=== PATIENT | male | born 1970 | race Caucasian/White ===

== ENCOUNTER 2021-10-20 15:46 | Emergency (ER) | payer BC, SELFPAY ==
[2021-10-20] MEDS ORDERED: LIDOCAINE 1% MPF 2 ML AMPULE ONE (16:40)
[2021-10-20] MEDS ORDERED: LIDOCAINE 1% MPF 5 ML VIAL ONE (16:40)
--- NOTE | 2021-10-20 17:09 | ER ---
Nurse's Notes [facility] Name: Sherwin Cartwright Age: 50 yrs Sex: Male : 1970 Arrival Date: 10/20/2021 Time: 15:49 Bed 9 Private MD: Diagnosis: Laceration without foreign body of left hand Presentation: 10/20 15:56 Chief complaint: Patient states: was drilling and drill lacerated his left hand. iw Coronavirus screen: At this time, the client does not indicate any symptoms associated with coronavirus-19. Ebola Screen: Patient negative for fever greater than or equal to 101.5 degrees Fahrenheit, and additional compatible Ebola Virus Disease symptoms Patient denies exposure to infectious person. Patient denies travel to an Ebola-affected area in the 21 days before illness onset. No symptoms or risks identified at this time. Complicating Factors: There are no complicating factors for this patient. Initial Sepsis Screen: Does the patient meet any 2 criteria? No. Patient's initial sepsis screen is negative. Does the patient have a suspected source of infection? No. Patient's initial sepsis screen is negative. Risk Assessment: Do you want to hurt yourself or someone else? Patient reports no desire to harm self or others. Onset of symptoms was October 20, 2021. 15:56 Method Of Arrival: Ambulatory 15:56 Acuity: GERI 4 iw Historical: - Allergies: 15:58 No Known Allergies; iw - Home Meds: 15:58 None [Active]; iw - PMHx: 15:58 back injury; iw - PSHx: 15:58 None; iw - Immunization history:: Last tetanus immunization: < 5 years ago. - Social history:: Smoking status: Patient denies any tobacco usage or history of. Screenin:18 Abuse screen: Denies threats or abuse. Denies injuries from another. Nutritional aj1 screening: No deficits noted. Tuberculosis screening: No symptoms or risk factors identified. Assessment: 16:18 General: Appears in no apparent distress. comfortable, Behavior is calm, cooperative, aj1 appropriate for age. Pain: Denies pain. Neuro: Level of Consciousness is awake, alert, obeys commands, Oriented to person, place, time, situation. Cardiovascular: Patient's skin is warm and dry. Respiratory: Airway is patent Respiratory effort is even, unlabored, Respiratory pattern is regular, symmetrical. GI: No signs and/or symptoms were reported involving the gastrointestinal system. : No signs and/or symptoms were reported regarding the genitourinary system. EENT: No signs and/or symptoms were reported regarding the EENT system. Derm: Skin is pink, warm \T\ dry. Musculoskeletal: Circulation, motion, and sensation intact. Injury Description: Puncture sustained to left hand. 17:15 Reassessment: Patient appears in no apparent distress at this time. No changes from aj1 previously documented assessment. Patient and/or family updated on plan of care and expected duration. Pain level reassessed. Patient is alert, oriented x 3, equal unlabored respirations, skin warm/dry/pink. Vital Signs: 15:56 BP 124 / 84; Pulse 87; Resp 16; Temp 98.1; Pulse Ox 100% on R/A; Weight 70.31 kg; iw Height 5 ft. 6 in. (167.64 cm); 15:56 Body Mass Index 25.02 (70.31 kg, 167.64 cm) iw ED Course: 15:49 Patient arrived in ED. ds1 15:57 Triage completed. iw 15:58 Arm band placed on. iw 16:08 Claud[facility] Tomlin [facility]C [facility]. kb 16:08 Isra Licea MD is Attending Physician. kb 16:17 Brenda Dee, RN is Primary Nurse. aj1 16:18 Patient has correct armband on for positive identification. Bed in low position. Call aj1 light in reach. 16:18 No provider procedures requiring assistance completed. aj1 17:15 Assist provider with laceration repair on lateral aspect of left hand using sutures. aj1 Set up tray. Performed by Claudine DOWNEY Patient tolerated well. 17:51 Patient did not have IV access during this emergency room visit. aj1 Administered Medications: 17:15 Drug: Lidocaine (1 %) 1 vials {Note: Administered by Meaghan Tomlin NP.} Volume: 5 ml; aj1 Route: Infiltration; Outcome: 17:08 Discharge ordered by . kb 17:51 Discharged to home ambulatory. aj1 17:51 Condition: good 17:51 Discharge instructions given to patient, Instructed on discharge instructions, follow up and referral plans. Demonstrated understanding of instructions, follow-up care. 17:52 Patient left the ED. aj1 Signatures: Claudine Tomlin, EARLEC TEAGAN-Brenda Corea RN RN aj1 Dasha Martinez ds1 Lori Bess RN RN iw
--- NOTE | 2021-10-20 17:09 | EDPHYS ---
Physician Documentation [facility] Name: Sherwin Cartwright Age: 50 yrs Sex: Male : 1970 Arrival Date: 10/20/2021 Time: 15:49 Bed 9 Private MD: ED Physician Isra Licea HPI: 10/20 16:39 This 50 yrs old Male presents to ER via Ambulatory with complaints of Laceration To kb Hand. 16:39 The patient has a laceration related to: working, occurred outdoors, and there are no kb complicating factors. The injury was accidental. The laceration(s) is(are) located on the lateral aspect of left hand. Onset: The symptoms/episode began/occurred just prior to arrival. Associated signs and symptoms: The patient has no apparent associated signs or symptoms. The patient has not experienced similar symptoms in the past. The patient has not recently seen a physician. Historical: - Allergies: 15:58 No Known Allergies; iw - Home Meds: 15:58 None [Active]; iw - PMHx: 15:58 back injury; iw - PSHx: 15:58 None; iw - Immunization history:: Last tetanus immunization: < 5 years ago. - Social history:: Smoking status: Patient denies any tobacco usage or history of. ROS: 16:37 Constitutional: Negative for fever, chills, and weight loss. kb 16:37 Skin: Positive for laceration(s), of the lateral aspect of left hand. 16:37 All other systems are negative. Exam: 16:38 Constitutional: This is a well developed, well nourished patient who is awake, alert, kb and in no acute distress. Head/Face: Normocephalic, atraumatic. ENT: Moist Mucous membranes Respiratory: Respirations even and unlabored. No increased work of breathing, no retractions or nasal flaring. MS/ Extremity: Pulses equal, no cyanosis. Neurovascular intact. Full, normal range of motion. Neuro: Awake and alert, GCS 15, oriented to person, place, time, and situation. Moves all extremities. Normal gait. Psych: Awake, alert, with orientation to person, place and time. Behavior, mood, and affect are within normal limits. 16:38 Skin: injury, laceration(s), the wound is approximately 2 cm(s), of the lateral aspect of left hand, that can be described as clean, no foreign body, linear, without bleeding. Vital Signs: 15:56 BP 124 / 84; Pulse 87; Resp 16; Temp 98.1; Pulse Ox 100% on R/A; Weight 70.31 kg; iw Height 5 ft. 6 in. (167.64 cm); 15:56 Body Mass Index 25.02 (70.31 kg, 167.64 cm) iw Laceration: 17:08 Wound Repair of 2cm ( 0.8in ) subcutaneous laceration to lateral aspect of left hand. kb Linear shaped.. Distal neuro/vascular/tendon intact. Anesthesia: Wound infiltrated with 1.5 mls of 1% lidocaine. Wound prep: Extensive cleansing with hibiclenz by me, Wound irrigation with saline. Skin closed with 2 5-0 Prolene using simple sutures and sterile technique. Patient tolerated well. MDM: 16:08 Patient medically screened. kb 16:38 Data reviewed: vital signs, nurses notes. Data interpreted: Pulse oximetry: on room air kb is 100 %. Interpretation: normal. Counseling: I had a detailed discussion with the patient and/or guardian regarding: the historical points, exam findings, and any diagnostic results supporting the discharge/admit diagnosis, the need for outpatient follow up, a family practitioner, to return to the emergency department if symptoms worsen or persist or if there are any questions or concerns that arise at home. 10/20 16:28 Order name: Dressing - Wound; Complete Time: 17:50 kb 10/20 16:28 Order name: Gloves, Sterile; Complete Time: 17:50 kb 10/20 16:28 Order name: Prolene, Sutures; Complete Time: 17:50 kb 10/20 16:28 Order name: Setup Suture Tray; Complete Time: 16:43 kb Administered Medications: 17:15 Drug: Lidocaine (1 %) 1 vials {Note: Administered by Meaghan Tomlin NP.} Volume: 5 ml; aj1 Route: Infiltration; Disposition: 17:59 Co-signature as Attending Physician, Isra Licea MD I agree with the assessment and kdr plan of care. Disposition Summary: 10/20/21 17:08 Discharge Ordered Location: Home kb Condition: Stable kb Diagnosis - Laceration without foreign body of left hand kb Followup: kb - With: Emergency Department - When: As needed - Reason: Worsening of condition Followup: kb - With: Private Physician - When: 2 - 3 days - Reason: Recheck today's complaints, Continuance of care, Re-evaluation by your physician Discharge Instructions: - Discharge Summary Sheet kb - Laceration Care, Adult, [id number] kb Forms: - Medication Reconciliation Form kb - Thank You Letter kb - Antibiotic Education kb - Prescription Opioid Use kb Signatures: Claudine Tomlin, TEAGAN-C PHERESIS NURSE-Sergiob Brenda Dee, RN RN aj1 Isra Licea MD MD kdr Lori Bess RN RN iw
[2021-10-20 17:56] VITALS: BP 124/84; TEMP 98.1; O2SAT 100
== END 2021-10-20 17:52 | disposition home or self-care (01) ==
LOC: ER 15:46
PROC: 0JQK0ZZ Repair Left Hand Subcutaneous Tissue and Fascia, Open Approach (ICD-10-PCS; principal; 2021-10-20)
DX: S61.412A Laceration without foreign body of left hand, initial encounter (principal); W45.8XXA Other foreign body or object entering through skin, initial encounter; Y93.89 Activity, other specified; Y92.89 Other specified places as the place of occurrence of the external cause; Y99.8 Other external cause status
CPT/HCPCS: 99283